=== PATIENT | female | born 1995 | race Caucasian/White ===

== ENCOUNTER 2021-07-05 13:26 | Emergency (ER) | payer BC ==
[~2021-07-05] VITALS: Ht 157.5 cm; Wt 72.7 kg
[2021-07-05 13:41] VITALS: BP 124/86; TEMP 99
[2021-07-05] MEDS ORDERED: ZITHROMAX Z PA250 MG PO (14:57)
[2021-07-05] MEDS ORDERED: PREDNISONE20 MG PO (14:59)
[2021-07-05 15:20] VITALS: PULSE 80
== END 2021-07-05 15:20 | disposition home or self-care (01) ==
LOC: COL.ER 13:26
DX: J04.0 Acute laryngitis (principal); J06.9 Acute upper respiratory infection, unspecified; Z20.822 Contact with and (suspected) exposure to COVID-19

== ENCOUNTER 2021-10-20 05:25 | Observation (INO) | payer BC ==
[~2021-10-20] VITALS: Ht 157.5 cm; Wt 72.7 kg
[~2021-10-20 05:25] MED LIST: PREDNISONE20 MG PO; ZITHROMAX Z PA250 MG PO
[2021-10-20 07:01] LABS: COLLECTION METHOD CLEAN CATCH
[2021-10-20 07:02] LABS: BASO % 0.2 % (0.0-2.0); EOS % 0.2 % (0.0-4.0); GRAN # 10.3 K/mm3 (1.4-6.5); GRAN % 82.4 % (42.2-75.2); HEMATOCRIT 38.1 % (37.0-47.0); HEMOGLOBIN 12.7 g/dl (12.5-16.0); LYMPH # 1.4 K/mm3 (1.2-3.4); LYMPH % 11.6 % (20.0-51.0); MEAN CELL VOLUME 88 fl (80.0-100.0); MEAN CORPUSCULAR HEMOGLOBIN 29 pg (27-31); MEAN CORPUSCULAR HGB CONC 33 g/dl (33.0-37.0); MEAN PLATELET VOLUME 10.7 fl (7.4-10.4); MONO # 0.6 K/mm3 (0.1-0.6); PLATELET COUNT 211 K/mm3 (130-400); RED BLOOD COUNT 4.34 M/mm3 (4.10-5.30); REDCELL DISTRIBUTION WIDTH-CV 13.3 % (11.5-14.5)
[2021-10-20 07:20] LABS: ALBUMIN 4.1 gm/dL (3.5-5.0); BILIRUBIN,TOTAL 0.3 mg/dL (0.2-1.2); CREATININE, serum 0.75 mg/dL (0.57-1.11); POTASSIUM 3.8 mmol/L (3.5-4.5); TOTAL PROTEIN 7.3 gm/dL (6.2-8.1)
[2021-10-20 07:21] LABS: MUCOUS Present (NOT PRESENT); PH 5 (5-8); URINE APPEARANCE Hazy (CLEAR/HAZY); URINE BACTERIA None Seen /hpf (NONE SEEN); URINE BILIRUBIN Negative (NEGATIVE); URINE BLOOD 3+ (NEGATIVE); URINE COLOR Yellow (YELLOW); URINE GLUCOSE Negative (NEGATIVE); URINE KETONE Negative (NEGATIVE); URINE LEUKOCYTE ESTERASE 1+ (NEGATIVE); URINE NITRATE Negative (NEGATIVE); URINE PROTEIN(semi-quant) Negative (NEGATIVE); URINE UROBILINOGEN Negative (NEGATIVE)
[2021-10-20 09:49] VITALS: TEMP 99
[2021-10-20 12:33] VITALS: BP 111/73; PULSE 79
--- NOTE | 2021-10-20 12:33 | NUR ---
Patient returns to room 1 per cart from surgery accompanied by German SIEGEL and Anusha SIEGEL. Patient arouses to verbal stimuli. IV fluids infusing and site is free of redness or swelling. No vaginal discharge. Room air sats 97% and temp 97.4. Friend in room and call light in reach. Allowed to rest.
[2021-10-20] MEDS ORDERED: IBU600 MG PO (12:38)
[2021-10-20 12:48] VITALS: BP 108/69; PULSE 62
--- NOTE | 2021-10-20 12:48 | NUR ---
Continues to rest without complaints. Friend in room.
[2021-10-20 13:12] VITALS: BP 99/61; PULSE 57
--- NOTE | 2021-10-20 13:12 | NUR ---
Scant vagingal discharge. IV fluids infusing. Taking water and denies pain or nausea.
[2021-10-20 13:22] VITALS: BP 99/64; PULSE 63
--- NOTE | 2021-10-20 13:27 | NUR ---
Eating muffin and denies nausea or pain. IV discontinued.
--- NOTE | 2021-10-20 13:27 | NUR ---
Patient is talking with friend. Dr. Dickinson was in the room and talked with patient and all questions answered.
--- NOTE | 2021-10-20 14:05 | NUR ---
Up and dressed. Dismissal instructions given and patient voices understanding of these. 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
--- NOTE | 2021-10-20 14:07 | NUR ---
Patient dismissed to home driven by friend and taken to the emergency room entrance and dismissed per private vehicle with instructions in hand.
== END 2021-10-20 14:07 | disposition home or self-care (01) ==
LOC: COL.ER 05:25 → INPTSU 08:22
PROVIDERS: Emergency Medicine; ADMIT Obstetrics & Gynecology
DX: O03.4 Incomplete spontaneous abortion without complication (principal); Z90.89 Acquired absence of other organs
CPT/HCPCS: J1885; J2405; J2704; J3010; J7120

== ENCOUNTER 2021-10-21 04:39 | Inpatient (IN) | payer BC ==
[~2021-10-21] VITALS: Wt 72.7 kg
[2021-10-21] VITALS (12 sets, daily range): BP systolic 102–127; BP diastolic 63–74; PULSE 84–108; TEMP 98.8–100.6
[~2021-10-21 04:39] MED LIST changes: +IBU600 MG PO
[2021-10-21 05:05] LABS: BASO % 0.2 % (0.0-2.0); GRAN # 7.3 K/mm3 (1.4-6.5); GRAN % 86.7 % (42.2-75.2); HEMOGLOBIN 11.2 g/dl (12.5-16.0); LYMPH # 0.7 K/mm3 (1.2-3.4); LYMPH % 8.6 % (20.0-51.0); MEAN CELL VOLUME 85 fl (80.0-100.0); MEAN CORPUSCULAR HEMOGLOBIN 29 pg (27-31); MEAN CORPUSCULAR HGB CONC 34 g/dl (33.0-37.0); MONO # 0.4 K/mm3 (0.1-0.6); MONO % 4.3 % (1.7-9.3); PLATELET COUNT 162 K/mm3 (130-400); RED BLOOD COUNT 3.83 M/mm3 (4.10-5.30); REDCELL DISTRIBUTION WIDTH-CV 13.3 % (11.5-14.5)
[2021-10-21 05:07] LABS: HEMATOCRIT 32.6 % (37.0-47.0)
[2021-10-21 05:24] LABS: ALBUMIN 3.8 gm/dL (3.5-5.0); BILIRUBIN,TOTAL 0.6 mg/dL (0.2-1.2); C-REACTIVE PROTEIN 7.39 mg/dL (0.00-0.50); CALCIUM 8.8 mg/dL (8.4-10.2); CREATININE, serum 0.74 mg/dL (0.57-1.11); POTASSIUM 3.5 mmol/L (3.5-4.5)
[2021-10-21 05:35] LABS: COLLECTION METHOD CLEAN CATCH
[2021-10-21 05:42] LABS: MUCOUS Present (NOT PRESENT); PH 7 (5-8); URINE APPEARANCE Cloudy (CLEAR/HAZY); URINE BACTERIA Rare /hpf (NONE SEEN); URINE BILIRUBIN Negative (NEGATIVE); URINE BLOOD 3+ (NEGATIVE); URINE COLOR Yellow (YELLOW); URINE GLUCOSE Negative (NEGATIVE); URINE KETONE Negative (NEGATIVE); URINE LEUKOCYTE ESTERASE Negative (NEGATIVE); URINE NITRATE Negative (NEGATIVE); URINE PROTEIN(semi-quant) 1+ (NEGATIVE); URINE RBC >50 /hpf (0-2); URINE UROBILINOGEN Negative (NEGATIVE)
--- NOTE | 2021-10-21 19:15 | NUR ---
PT UP TO COMMODE WITH 1:1 ASSIST, PT COMPLAINING OF BURNING WHEN URINATING. PT HAD LOOSE BM WELL. ALSO NOTED WAS A SMALL SHEARING INJURY TO COCCYX. NIGHT RN NOTIFIED. PT CURRENTLY NOT ON ABX FOR UTI.
[2021-10-22] VITALS (8 sets, daily range): BP systolic 91–120; BP diastolic 45–65; PULSE 59–81; TEMP 97.4–98.3
--- NOTE | 2021-10-22 01:11 | NUR ---
PATIENT DOING WELL TONIGHT. ALERT AND ORIENTED. BOYFRIEND WAS HERE VISITING EARLIER. STATES SHE IS NOT HAVING PAIN BUT THERE IS STILL SMALL AMOUNT OF BLEEDING. LR TO L AC AT 125 WILL BE SALINE LOCKED WHEN BAG IS EMPTY. CURRENTLY ASLEEP IN BED.
[2021-10-22 07:40] LABS: BASO % 0.4 % (0.0-2.0); EOS % 1.1 % (0.0-4.0); GRAN # 1.4 K/mm3 (1.4-6.5); GRAN % 51.3 % (42.2-75.2); HEMOGLOBIN 10.7 g/dl (12.5-16.0); LYMPH # 0.9 K/mm3 (1.2-3.4); LYMPH % 32.5 % (20.0-51.0); MEAN CELL VOLUME 88 fl (80.0-100.0); MEAN CORPUSCULAR HEMOGLOBIN 30 pg (27-31); MEAN CORPUSCULAR HGB CONC 33 g/dl (33.0-37.0); MEAN PLATELET VOLUME 11.7 fl (7.4-10.4); MONO # 0.4 K/mm3 (0.1-0.6); MONO % 14.3 % (1.7-9.3); PLATELET COUNT 124 K/mm3 (130-400); RED BLOOD COUNT 3.62 M/mm3 (4.10-5.30); REDCELL DISTRIBUTION WIDTH-CV 13.5 % (11.5-14.5)
[2021-10-22 08:01] LABS: C-REACTIVE PROTEIN 9.94 mg/dL (0.00-0.50); CALCIUM 8.3 mg/dL (8.4-10.2); CREATININE, serum 0.59 mg/dL (0.57-1.11); POTASSIUM 3.7 mmol/L (3.5-4.5); TOTAL PROTEIN 5.8 gm/dL (6.2-8.1)
[2021-10-22 08:10] LABS: BILIRUBIN,TOTAL 0.2 mg/dL (0.2-1.2)
--- NOTE | 2021-10-22 10:34 | NUR ---
SW met with patient to complete intake. Patient states that she lives in [facility] with roommates and her point of contact would be her mother Dimple [phone]. Patient provides that she does not utilize DME and is independent with ADLs. Patient states that she does not have a PCP, and does not care to have resources to follow up to obtain one. Patient provides that she knows how to reach out to [facility] if she needs any medical assistance. Patient states that that pharmacy she utilizes is [facility]. Patient provides that she does not have anyone appointed as her DPOA at this time, SW left DPOA documentation to review. SW will continue to follow. DC plan: home
--- NOTE | 2021-10-22 19:40 | NUR ---
Bedside shift report received, assumed care for direct marketing intern. Assessment complete. A&Ox4. Denies nausea/shortenss of breath. Intermittent cramping-denies need for intervention. States bleeding is minimal. Tolerating PO and voiding without difficulty. Plan of care discussed for this shift to include meds/calling for questions/concerns. Verbalizes understanding. Denies needs. Call light in reach. Will monitor.
--- NOTE | 2021-10-22 23:45 | NUR ---
Motrin given per dr order. Pt denies pain/nausea at this time. Call light in reach. Will monitor.
[2021-10-23 04:27] VITALS: BP 98/54; PULSE 53; TEMP 98
--- NOTE | 2021-10-23 04:31 | NUR ---
Patient had an uneventful night. Denied nausea/shortness of breath. VS remained stable. Tolerating diet. Voiding without difficulty. INT to left AC flushes without difficulty. Had intermittent cramping but motrin/tylenol sufficient for pain. Denies current needs. Call light in reach. Will monitor.
[2021-10-23 06:41] LABS: HEMOGLOBIN 10.9 g/dl (12.5-16.0); MEAN CELL VOLUME 88 fl (80.0-100.0); MEAN CORPUSCULAR HEMOGLOBIN 29 pg (27-31); MEAN CORPUSCULAR HGB CONC 33 g/dl (33.0-37.0); MEAN PLATELET VOLUME 10.9 fl (7.4-10.4); PLATELET COUNT 142 K/mm3 (130-400); RED BLOOD COUNT 3.73 M/mm3 (4.10-5.30); REDCELL DISTRIBUTION WIDTH-CV 13.5 % (11.5-14.5)
[2021-10-23 06:51] LABS: HEMATOCRIT 32.8 % (37.0-47.0)
[2021-10-23 07:09] LABS: ALBUMIN 3.1 gm/dL (3.5-5.0); BILIRUBIN,TOTAL 0.1 mg/dL (0.2-1.2); C-REACTIVE PROTEIN 5.32 mg/dL (0.00-0.50); CALCIUM 8.5 mg/dL (8.4-10.2); CREATININE, serum 0.63 mg/dL (0.57-1.11); POTASSIUM 3.9 mmol/L (3.5-4.5); TOTAL PROTEIN 6.1 gm/dL (6.2-8.1)
[2021-10-23 08:00] VITALS: BP 107/68; PULSE 64; TEMP 98.2
[2021-10-23] MEDS ORDERED: DOXYCYCLINE 10100 MG PO (09:08)
[2021-10-23] MEDS ORDERED: FLAGYL500 MG PO (09:11)
--- NOTE | 2021-10-23 12:11 | NUR ---
PT MET CRITERIA FOR DISCHARGE, VSS. PAIN CONTROLLED, NO BLEEDING NOTED. IV REMOVED WITHOUT COMPLICATIONS, CATHETER INTACT. DISCHARGE INSTRUCTIONS REVIEWED, PT VERBALIZED UNDERSTANDING. PT AWARE OF F/U APPT TO SCHEDULE AND OF PRESCRIPTIONS TO FAST FOOD SHIFT LEAD. PT DC VIA AMBULATORY, ACCOMPANIED BY THIS NURSE.
== END 2021-10-23 12:14 | disposition home or self-care (01) | DRG 770 ==
LOC: COL.ER 04:39 → SURG 06:15
PROVIDERS: Emergency Medicine; Student in an Organized Health Care Education/Training Program; ADMIT Obstetrics & Gynecology
PROC: 10D17ZZ Extraction of Products of Conception, Retained, Via Natural or Artificial Opening (ICD-10-PCS; principal; 2021-10-21 12:45)
DX: O03.1 Delayed or excessive hemorrhage following incomplete spontaneous abortion (principal); N99.820 Postprocedural hemorrhage of a genitourinary system organ or structure following a genitourinary system procedure; O03.0 Genital tract and pelvic infection following incomplete spontaneous abortion; N71.9 Inflammatory disease of uterus, unspecified; D64.9 Anemia, unspecified; O26.899 Other specified pregnancy related conditions, unspecified trimester; Z67.11 Type A blood, Rh negative; Z23 Encounter for immunization
CPT/HCPCS: J0696; J2405; J2704; J3010; J7120